=== PATIENT | female | born 1975 | race Caucasian/White ===

== ENCOUNTER 2017-12-22 14:21 | Outpatient (CLI) | payer OTHER ==
--- NOTE | 2017-12-22 18:13 | MRI Report ---
EXAM: RIGHT SHOULDER MRI WITHOUT CONTRAST EXAM DATE: 12/22/2017 03:21 PM. CLINICAL HISTORY: Pain in right shoulder. COMPARISON: None. TECHNIQUE: Multiplanar, multisequence T1-weighted and fluid-sensitive sequences of the shoulder witho ut contrast. Other: None. FINDINGS: Acromioclavicular Region: The acromion is type II. The acromioclavicular joint is unremarkable. The c oracoacromial and coracoclavicular ligaments are intact. Minimal subacromial/subdeltoid bursal fluid. Glenohumeral Region: No subluxation. No effusion or loose bodies. The articular cartilage is unremark able. The glenohumeral ligaments and joint capsule are unremarkable. Bone Marrow: No fracture, marrow edema or bone lesions. Labrum: Ill-defined superior labral tear extends anterior and posterior to the biceps tendon anchor. Musculature/Rotator Cuff: Minimal supraspinatus and infraspinatus tendinopathy. Subtle shallow partia l-thickness intrasubstance tear at the posterior insertion infraspinatus tendon. Teres minor and subscapularis tendons are normal in morphology. No edema or fatty atrophy. Biceps Tendon: The long head of the biceps tendon and biceps elisabeth are intact. Other: The subcutaneous tissues are unremarkable. IMPRESSION: 1. Minimal supraspinatus and infraspinatus tendinopathy with subtle shallow partial-thickness intrasu bstance tear at the infraspinatus tendon. 2. Superior labral tear extending anterior to posterior (SLAP tear). [facility] MUSCULOSKELET[facility]IOLOG[facility] SECTION Referring Provider Line: [phone] SITE ID: [id number]
== END 2017-12-22 14:22 | disposition home or self-care (01) ==
LOC: DI 14:21
PROVIDERS: ATTEND Internal Medicine
DX: S46.011A Strain of muscle(s) and tendon(s) of the rotator cuff of right shoulder, initial encounter (principal); S43.431A Superior glenoid labrum lesion of right shoulder, initial encounter; M75.91 Shoulder lesion, unspecified, right shoulder

== ENCOUNTER 2019-05-15 18:13 | Emergency (ER) | payer OTHER ==
--- NOTE | 2019-05-15 18:58 | XRAY Report ---
Reason: injury Procedure Date: 05/15/2019 Accession Number: [id number] / [id number] Procedure: XR - Toe(s) LT CPT Code: FULL RESULT: EXAM: LEFT TOE RADIOGRAPHY EXAM DATE: 05/15/2019 06:34 PM. CLINICAL HISTORY: Injury. COMPARISON: None. TECHNIQUE: 3 views. FINDINGS: Bones: Only seen on frontal view is a nondisplaced lucency through the lateral base of distal phalynx suggesting fracture. Remainder of the osseous structures are normal. Joints: Normal. No subluxations. Soft Tissues: Normal. No soft tissue swelling. IMPRESSION: Non displaced intra-articular fracture lateral base of first distal phalynx. [facility]
--- NOTE | 2019-05-15 20:26 | ED Physician Documentation ---
PD HPI LOWER EXT INJURY - Stated complaint Stated Complaint: LT TOE INJ - Chief complaint Chief Complaint: Ext Problem - History obtained from History obtained from: Patient - History of Present Illness PD HPI LOW EXT INJURY LOCATION: Left, Toe Type of injury: Fall (slipped on stairs and jammed/bent great toe. Pain in toe and has had swelling/bruising develop through the day.) Timing - onset: Today (this morning) Timing - details: Abrupt onset, Still present Improved by: Rest Worsened by: Moving, Palpating Associated symptoms: Swelling, Discolored (bruising). No: Weakness, Numbness Similar symptoms before: Has not had sx before Review of Systems Skin: denies: Abrasion (s), Laceration (s) Neurologic: denies: Focal weakness, Numbness PD PAST MEDICAL HISTORY - Past Medical History Cardiovascular: None Respiratory: None Endocrine/Autoimmune: Systemic lupus erythematosus, Other GI: None : None HEENT: None Psych: None Musculoskeletal: Fibromyalgia, Other Derm: None - Past Surgical History General: Cholecystectomy /TR[employer] GATE [employer]ENDANT: section, Endometrial ablation HEENT: Rhinoplasty - Present Medications Home Medications: Ambulatory Orders Medication Instructions Recorded Confirmed Hydroxychloroquine [Plaquenil] 200 mg PO DAILY 12/21/14 12/21/14 Albuterol Sulfate [Proair Hfa 1 - 2 puffs INH Q4H PRN 09/03/18 09/03/18 Inhaler] Fluticasone [Flonase] 1 sprays NERISSA BID 09/03/18 09/03/18 Leflunomide [Arava] 10 mg PO 09/03/18 - Allergies Allergies/Adverse Reactions: Allergies Allergy/AdvReac Type Severity Reaction Status Date / Time No Known Drug Allergies Allergy Verified 05/15/19 18:21 - Social History Does the pt smoke?: No Smoking Status: Never smoker Does the pt drink ETOH?: Yes Does the pt have substance abuse?: No - Immunizations Immunizations are current?: Yes Immunizations: TDAP current <10years PD ED PE NORMAL - Vitals Vital signs reviewed: Yes - General General: Alert and oriented X 3, No acute distress, Well developed/nourished - Derm Derm: Normal color, Warm and dry - Extremities Extremities: Other (Left great toe tender with swelling and bruising along the IP joint area. There is no obvious deformity. This is meant as angulation. There is obviously the swelling. There is good sensation color and capillary refill at the tip. The bruising does extend onto the base of the toe and the dorsum of the foot. There is not particular tenderness in those areas however.) - Neuro Neuro: No motor deficit, No sensory deficit Results - Vitals Vitals: Oxygen O2 Source Room air - Rads (name of study) left great toe Radiology: Prelim report reviewed, See rad report (toe fracture at proximal corner of distal phalanx) PD MEDICAL DECISION MAKING - ED course Complexity details: reviewed results, considered differential, d/w patient Departure - Departure Disposition: Home, Self Care Clinical Impression: Toe fracture, left Qualifiers: Encounter type: initial encounter Toe: great toe Fracture type: closed Phalanx: distal Fracture alignment: nondisplaced Qualified Code(s): S92.425A - Nondisplaced fracture of distal phalanx of left great toe, initial encounter for closed fracture Condition: Stable Record reviewed to determine appropriate education?: Yes Instructions: ED Fx Toe Closed Follow-Up: DALIA VASQUEZ MD [Primary Care Provider] - [facility] [Provider Group] Comments: Ibuprofen or naproxen 2-3 times a day. Add Tylenol every 4 hours if needed for pain. Elevate and rest your foot often today and tomorrow to reduce swelling. Postop shoe for the next 4 weeks to reduce motion at the great toe. Crutches initially if needed for partial weightbearing. Progress as tolerated. Recheck with your primary care orthopedics or podiatry in about a week to make sure its healing adequately. Discharge Date/Time: 05/15/19 21:33
[2019-05-15] MEDS ORDERED: IBUPROFEN 600 MG TABLET PO STA (20:42)
[2019-05-15 21:35] VITALS: BP 133/90
== END 2019-05-15 21:33 | disposition home or self-care (01) ==
LOC: ED 18:13
DX: S92.425A Nondisplaced fracture of distal phalanx of left great toe, initial encounter for closed fracture (principal); W10.9XXA Fall (on) (from) unspecified stairs and steps, initial encounter
CPT/HCPCS: 73660; 99282; 99283; A9270

== ENCOUNTER 2019-07-22 13:27 | Outpatient (CLI) | payer OTHER ==
--- NOTE | 2019-07-22 14:47 | Mammography Report ---
Reason: LUMP IN BREAST Procedure Date: 07/22/2019 Accession Number: [id number] / [id number] Procedure: [facility] - Diagnostic Dig Bilat CPT Code: FULL RESULT: EXAM: Diagnostic Dig Bilat DATE: 07/22/2019 2:36 PM CLINICAL HISTORY: Diagnostic examination. Question of palpable nodules. History of late childbearing. TECHNIQUE: (B) - Bilateral CC and MLO views were obtained. Bilateral LM views are obtained. COMPARISON: 11/24/2016. PARENCHYMAL PATTERN: (D) - The breast(s) demonstrate(s) heterogeneously dense fibroglandular parenchyma. FINDINGS: There are no suspicious masses, calcifications, or areas of distortion. IMPRESSION: Negative examination. BI-RADS category 1. RECOMMENDATION: (ANNUAL) - Recommend routine annual screening mammography. BI-RADS CATEGORY: (1) - Negative. STANDARD QUALIFYING STATEMENTS: 1. This examination was not reviewed with the aid of Computer-Aided Detection (CAD). 2. A negative or benign imaging report should not preclude biopsy if clinically suspicious findings are present. 3. Dense breasts may obscure an underlying neoplasm. 4. This examination was reviewed without the aid of 3D breast imaging (tomosynthesis).
== END 2019-07-22 13:28 | disposition home or self-care (01) ==
LOC: DI 13:27
PROVIDERS: ATTEND Internal Medicine
DX: N63.10 Unspecified lump in the right breast, unspecified quadrant (principal)
CPT/HCPCS: 77066